=== PATIENT | male | born 2000 | race Caucasian/White ===

== ENCOUNTER 2022-05-06 02:52 | Emergency (ER) | payer BC ==
[2022-05-06 03:14] VITALS: TEMP 98.9; BMI 27.4
[2022-05-06] MEDS ORDERED: AMOX TR/POT CLAV 875MG/125MG TABLETS (FP) PO ONE (03:58)
[2022-05-06] MEDS ORDERED: DIPHTH,PERTUSS(ACELL),TET 0.5 ML DISP.SYRIN IM ONE ×2 (03:59→04:14)
[2022-05-06] MEDS ORDERED: AMOX TR/POT CLAV 875MG/125MG TABLETS (FP) ONE (04:14)
[2022-05-06 05:08] VITALS: BP 121/74; PULSE 91; RESP 18
== END 2022-05-06 05:15 | disposition home or self-care (01) ==
LOC: JER 02:52
PROC: 3E0234Z Introduction of Serum, Toxoid and Vaccine into Muscle, Percutaneous Approach (ICD-10-PCS; principal; 2022-05-06)
DX: S61.011A Laceration without foreign body of right thumb without damage to nail, initial encounter (principal); W50.3XXA Accidental bite by another person, initial encounter
CPT/HCPCS: 90471; 90715; 99284-25